=== PATIENT | female | born 1945 | race Caucasian/White ===

== ENCOUNTER 2017-04-27 14:09 | Emergency (ER) | payer MEDICARE ==
[2017-04-27 14:17] VITALS: BP 143/65
[2017-04-27] MEDS ORDERED: Tetan/Diph/Pertus SYR(Tdap)* 0.5 ML SYR(BOOSTRIX) use SYR IM ONE (14:20)
--- NOTE | 2017-04-27 14:23 | UC ---
Laceration HPI - HPI Summary HPI Summary: complaint of small laceration on right arm while cleaning her garage today not UTD on tetanus - History Of Current Complaint Chief Complaint: UCLaceration Stated Complaint: ARM LAC Time Seen by Provider: 04/27/17 14:14 Hx Obtained From: Patient Laceration Location: Arm - Allergies/Home Medications Allergies/Adverse Reactions: Allergies Allergy/AdvReac Type Severity Reaction Status Date / Time No Known Allergies Allergy Verified 04/27/17 14:23 Home Medications: Home Medications NK [No Home Medications Reported] 04/27/17 [History Confirmed 04/27/17] PMH/Surg Hx/FS Hx/Imm Hx Previously Healthy: Yes Cardiovascular History: Hypertension - Surgical History Surgical History: Yes Surgery Procedure, Year, and Place: abd peritonitis,hyster,bilat feet - Family History Known Family History: Positive: Hypertension Negative: Cardiac Disease, Diabetes - Social History Occupation: Retired Lives: With Family Alcohol Use: Daily Substance Use Type: None Smoking Status (MU): Never Smoked Tobacco Review of Systems Constitutional: Negative Skin: Other - laceration on right arm Eyes: Negative ENT: Negative Respiratory: Negative Cardiovascular: Negative Gastrointestinal: Negative Genitourinary: Negative Motor: Negative Neurovascular: Negative Musculoskeletal: Negative Neurological: Negative Psychological: Negative All Other Systems Reviewed And Are Negative: Yes Physical Exam Triage Information Reviewed: Yes Appearance: No Pain Distress, Well-Nourished Vital Signs: Initial Vital Signs Temp 98 F 04/27/17 14:14 Pulse 66 04/27/17 14:14 Resp 16 04/27/17 14:14 BP 143/65 04/27/17 14:14 Pulse Ox 100 04/27/17 14:14 Vital Signs Reviewed: Yes Eyes: Positive: Conjunctiva Clear Respiratory: Positive: Chest non-tender, Lungs clear, Normal breath sounds, No respiratory distress Cardiovascular: Positive: RRR, No Murmur, Pulses Normal, Brisk Capillary Refill Neurological: Positive: Alert Psychological Exam: Normal Skin: Positive: Other - RUE -1.5 cm laceration Laceration Repair - Laceration Repair 1 Description: Linear Laceration Size After Repair: Length (cm) - 1.5cm, Width (mm) - 1, Depth (mm) - 1 Cleansing Completed Via Routine Prep: Yes Irrigation With Pressure Irrigation Device: Yes Closure Material: SteriStrips Laceration Course/Dx - Differential Dx - Laceration/Wound Differental Diagnoses: Laceration Provider Diagnoses: simple laceration - right arm, elevated blood pressure Discharge - Discharge Plan Condition: Stable Disposition: HOME Patient Education Materials: Steristrips (ED) Referrals: [facility] [Outside] Additional Instructions: leave the steristrips in place until they fall off keep your wound clean and dry seek medical care if you have any signs of infection which includes increased redness, swelling, pain drainage or fever Take acetaminophen or ibuprofen for fever or pain Please review your discharge instructions. If your symptoms do not improve please call your primary care provider or return to urgent care.
== END 2017-04-27 14:39 | disposition home or self-care (01) ==
LOC: UCEAST 14:09
DX: S61.411A Laceration without foreign body of right hand, initial encounter (principal); I10 Essential (primary) hypertension; W45.8XXA Other foreign body or object entering through skin, initial encounter; Y93.H9 Activity, other involving exterior property and land maintenance, building and construction
CPT/HCPCS: 90471; 90715; 99213; G0463

== ENCOUNTER 2017-06-01 08:53 | Emergency (ER) | payer MEDICARE ==
[2017-06-01] MEDS ORDERED: Albuterol 2.5 MG/3 ML NEB.SOL* (0.083%) INH ONE (09:38)
--- NOTE | 2017-06-01 09:45 | UC ---
HPI Febrile Illness - HPI Summary HPI Summary: YESTERDAY DEVELOPED FEVER, AND SENSATION OF SHORTNESS OF BREATH - OKAY WITH INSPIRATION BUT FELT SHE COULD NOT EXHALE COMPLETELY. HAS DIFFUSE ACHINESS AND FATIGUE. NO COUGH OR CONGESTION. DENIES TICKE BITES. [place] - History of Current Complaint Chief Complaint: UCGeneralIllness Time Seen by Provider: 06/01/17 09:27 Hx Obtained From: Patient Onset/Duration: Started Hours Ago, Still Present Timing: Constant Initial Severity: Moderate Current Severity: Moderate Pain Intensity: 7 Pain Scale Used: 0-10 Numeric Aggravating Factors: Nothing Alleviating Factors: Nothing Associated Signs and Symptoms: Chills, Myalgia, SOB - Allergy/Home Medications Allergies/Adverse Reactions: Allergies Allergy/AdvReac Type Severity Reaction Status Date / Time Erythromycin Allergy See Comment Verified 06/01/17 09:18 Vicodin Allergy Vomiting Uncoded 06/01/17 09:21 Home Medications: Home Medications Aspirin [Aspirin 81 MG TAB] 1 tab PO DAILY 06/01/17 [History Confirmed 06/01/17] Atenolol & Chlorthalidone [Atenolol/Chlorthalidone 100-25 mg-] 1 tab PO DAILY [History Confirmed 06/01/17] Buffered Aspirin TAB* [Bufferin TAB*] 2 tab PO DAILY 06/01/17 [History Confirmed 06/01/17] Lisinopril [Lisinopril 40 MG-] 1 tab PO DAILY 06/01/17 [History Confirmed ] Magnesium Oxide [Magnesium] 1 tab PO DAILY 06/01/17 [History Confirmed 06/01/17] Vegan Vitamin 0.5 tab PO DAILY 06/01/17 [History Confirmed 06/01/17] PMH/Surg Hx/FS Hx/Imm Hx Endocrine/Hematology History: Denies: Hx Diabetes, Hx Thyroid Disease Cardiovascular History: Reports: Hx Hypertension - medication Respiratory History: Denies: Hx Asthma, Hx Chronic Obstructive Pulmonary Disease (COPD) GI History: Denies: Hx Ulcer - Surgical History Surgery Procedure, Year, and Place: abd peritonitis,hyster, bilateral foot surgeries Infectious Disease History: No Infectious Disease History: Denies: Hx Clostridium Difficile, Hx Hepatitis, Hx Human Immunodeficiency Virus (HIV), Hx of Known/Suspected MRSA, Hx Shingles, Hx Tuberculosis, Hx Known/ Suspected VRE, Hx Known/Suspected VRSA, History Other Infectious Disease, Traveled Outside the [place] in Last 30 Days - Family History Known Family History: Positive: Hypertension Negative: Cardiac Disease, Diabetes - Social History Alcohol Use: Daily Alcohol Amount: beer, 2 per night Substance Use Type: Reports: None Smoking Status (MU): Never Smoked Tobacco Review of Systems Constitutional: Fever, Fatigue Skin: Negative Respiratory: Shortness Of Breath Cardiovascular: Negative Gastrointestinal: Negative All Other Systems Reviewed And Are Negative: Yes Physical Exam Triage Information Reviewed: Yes Appearance: Well-Appearing, No Pain Distress, Well-Nourished Vital Signs: Initial Vital Signs Temp 101.5 F 06/01/17 09:11 Pulse 90 06/01/17 09:11 Resp 20 06/01/17 09:11 BP 169/97 06/01/17 09:11 Pulse Ox 96 06/01/17 09:11 Vital Signs Reviewed: Yes Eyes: Positive: Conjunctiva Clear ENT: Positive: Hearing grossly normal, Pharynx normal, TMs normal Neck: Positive: Supple, Nontender, No Lymphadenopathy Respiratory Exam: Normal Cardiovascular Exam: Normal Abdomen Description: Positive: Soft Musculoskeletal: Positive: No Edema Neurological: Positive: Alert Psychological: Positive: Age Appropriate Behavior Skin: Negative: rashes Diagnostics - Laboratory Diagnostic Studies Completed/Ordered: RAPID FLU NEGATIVE - EKG Cardiac Rate: NL - 83 bpm Cardiac Rhythm: Sinus: Normal Ectopy: None ST Segment: Non-Specific - <1MM ST DEPRESSION ANTEROLATERAL LEADS Re-Evaluation - Re-Evaluation First Eval Re-Evaluation Time: 10:30 - feels better after albuterol neb Change: Improved Course/Dx - Course Course Of Treatment: FELT BETTER AFTER NEB. EKG WITH NON SPECIFIC ST SEGMENT CHANGES. FLU NEG. PT DECLINES ALBUTEROL FOR HOME USE (BOTH NEB AND INHALER). DECLINES CXR AND LYME TESTING. DOES NOT WANT EMPIRIC ANTIBIOTICS. WILL TREAT WITH OTC MEDS AND REST. ADVISED TO F/U WITH PCP IN 2 DAYS IF NOT IMPROVED. TO ER WITHOUT FAIL IF SOB WORSENS, CP, NAUSEA, RPFC4CL, DIZZINESS. - Diagnoses Clinic Provider Diagnoses: ACUTE VIRAL ILLNESS Discharge - Discharge Plan Condition: Stable Disposition: HOME Patient Education Materials: Viral Syndrome (ED) Referrals: Mary Maki MD [Primary Care Provider] - 2 Days Additional Instructions: RAPID FLU TEST NEGATIVE. EKG NON SPECIFIC. SEEK FOLLOW-UP IF YOU ARE NOT FEELING BETTER IN 2 DAYS. GO TO ER WITHOUT FAIL IF YOU DEVELOP WORSENING SHORTNESS OF BREATH, CHEST PAIN, NAUSEA, SWEATS, DIZZINESS OR ANY OTHER CONCERNING SYMPTOMS.
[2017-06-01 10:56] VITALS: BP 158/86
== END 2017-06-01 10:50 | disposition home or self-care (01) ==
LOC: UCEAST 08:53
DX: B34.9 Viral infection, unspecified (principal); Z88.1 Allergy status to other antibiotic agents; Z88.5 Allergy status to narcotic agent; I10 Essential (primary) hypertension; Z79.82 Long term (current) use of aspirin
CPT/HCPCS: 87502; 93005; 99212; G0463

== ENCOUNTER 2017-06-01 14:32 | Emergency (ER) | payer MEDICARE ==
[2017-06-01 14:43] VITALS: BP 154/85
--- NOTE | 2017-06-01 14:49 | UC ---
Complaint Female HPI - HPI Summary HPI Summary: 72 YEAR OLD FEMALE PRESENTS WITH COMPLAINS OF FREQUENCY AND URGENCY OF URINATION. - History Of Current Complaint Chief Complaint: UCGU Stated Complaint: BURNING URINATION Time Seen by Provider: 06/01/17 14:48 Onset/Duration: Sudden Onset Timing: Constant Severity Initially: Moderate Severity Currently: Moderate Pain Scale Used: 0-10 Numeric - 5 Character: Sharp, Burning, Cramping Alleviating Factor(s): Nothing Associated Signs And Symptoms: Positive: Negative - Allergies/Home Medications Allergies/Adverse Reactions: Allergies Allergy/AdvReac Type Severity Reaction Status Date / Time Erythromycin Allergy See Comment Verified 06/01/17 09:18 Vicodin Allergy Vomiting Uncoded 06/01/17 09:21 PMH/Surg Hx/FS Hx/Imm Hx Previously Healthy: Yes - Surgical History Surgical History: Yes Surgery Procedure, Year, and Place: abd peritonitis,hyster, bilateral foot surgeries - Family History Known Family History: Positive: Hypertension Negative: Cardiac Disease, Diabetes - Social History Alcohol Use: Daily Alcohol Amount: beer, 2 per night Substance Use Type: None Smoking Status (MU): Never Smoked Tobacco - Immunization History Most Recent Tetanus Shot: 04/27/17 Review of Systems Constitutional: Negative Skin: Negative Eyes: Negative ENT: Negative Respiratory: Negative Cardiovascular: Negative Gastrointestinal: Negative Genitourinary: Dysuria, Frequency, Urgency Motor: Negative Neurovascular: Negative Musculoskeletal: Negative Neurological: Negative Psychological: Negative All Other Systems Reviewed And Are Negative: Yes Physical Exam Triage Information Reviewed: Yes Vital Signs: Initial Vital Signs Temp 37.1 C 06/01/17 14:39 Pulse 85 06/01/17 14:39 Resp 17 06/01/17 14:39 BP 154/85 06/01/17 14:39 Pulse Ox 99 06/01/17 14:39 Vital Signs Reviewed: Yes Eye Exam: Normal ENT Exam: Normal Dental Exam: Normal Neck exam: Normal Neck: Positive: 1 Respiratory Exam: Normal Cardiovascular Exam: Normal Abdominal Exam: Normal Musculoskeletal Exam: Normal Neurological Exam: Normal Psychological Exam: Normal Skin Exam: Normal Complaint Female Dx - Differential Dx/Diagnosis Provider Diagnoses: URINARY FREQUENCY. URINARY URGENCY Discharge - Discharge Plan Condition: Stable Disposition: HOME Prescriptions: Ciprofloxacin TAB* [Cipro 500 MG TAB*] 500 mg PO BID #14 tab Patient Education Materials: Dysuria (ED) Referrals: Mary Maki MD [Primary Care Provider] -
--- NOTE | 2017-06-02 17:20 | ED ---
Progress - Progress Note Progress Note: UCX (-). NO CHANGES. Course/Dx - Diagnoses Provider Diagnoses: Urinary tract infection
== END 2017-06-01 15:23 | disposition home or self-care (01) ==
LOC: UCEAST 14:32
DX: R35.0 Frequency of micturition (principal); R39.15 Urgency of urination; R30.0 Dysuria; Z88.1 Allergy status to other antibiotic agents; Z88.5 Allergy status to narcotic agent
CPT/HCPCS: 81003; 87086; 99212; G0463

== ENCOUNTER 2017-12-21 10:52 | Emergency (ER) | payer MEDICARE ==
[2017-12-21 11:07] VITALS: BP 130/70
--- NOTE | 2017-12-21 11:31 | ED ---
Throat Pain/Nasal Congestion - HPI Summary HPI Summary: Pt here w/ URI sx x 6 days. Cough, aches, chills, congestion and LYNN from coughing. Aches are better today. Has tried Coricidon HBP and delsym - these seem to help cough some but just wanted to get checked out as she's tired of being sick- cough at night. Denies fever, ST, PND, N/V/D, ab pain, rash. No known sick contacts. Imms are UTD. - History of Current Complaint Chief Complaint: UCRespiratory Time Seen by Provider: 12/21/17 11:17 Hx Obtained From: Patient - Allergies/Home Medications Allergies/Adverse Reactions: Allergies Allergy/AdvReac Type Severity Reaction Status Date / Time erythromycin base Allergy See Comment Verified 12/21/17 11:08 Vicodin Allergy Vomiting Uncoded 12/21/17 11:08 PMH/Surg Hx/FS Hx/Imm Hx Previously Healthy: Yes Endocrine/Hematology History: Denies: Hx Diabetes, Hx Thyroid Disease Cardiovascular History: Reports: Hx Hypertension - medication Respiratory History: Denies: Hx Asthma, Hx Chronic Obstructive Pulmonary Disease (COPD) GI History: Denies: Hx Ulcer - Surgical History Surgery Procedure, Year, and Place: abd peritonitis,hyster, bilateral foot surgeries Infectious Disease History: No Infectious Disease History: Denies: Hx Clostridium Difficile, Hx Hepatitis, Hx Human Immunodeficiency Virus (HIV), Hx of Known/Suspected MRSA, Hx Shingles, Hx Tuberculosis, Hx Known/ Suspected VRE, Hx Known/Suspected VRSA, History Other Infectious Disease, Traveled Outside the [place] in Last 30 Days - Family History Known Family History: Positive: Hypertension Negative: Cardiac Disease, Diabetes - Social History Occupation: Retired Lives: With Family Alcohol Use: Daily Alcohol Amount: beer, 2 per night Hx Substance Use: No Substance Use Type: Reports: None Hx Tobacco Use: No Smoking Status (MU): Never Smoked Tobacco Review of Systems Positive: Chills Eyes: Negative Positive: Nasal Discharge Cardiovascular: Negative Positive: Cough. Negative: Shortness Of Breath Gastrointestinal: Negative Positive: no symptoms reported Positive: Arthralgia Skin: Negative Positive: Headache Psychological: Normal All Other Systems Reviewed And Are Negative: Yes Physical Exam Triage Information Reviewed: Yes Vital Signs On Initial Exam: Initial Vitals Temp Pulse Resp BP Pulse Ox 98.2 F 89 18 130/70 99 12/21/17 10:56 12/21/17 10:56 12/21/17 10:56 12/21/17 10:56 12/21/17 10:56 Vital Signs Reviewed: Yes Appearance: Positive: Well-Appearing, No Pain Distress, Well-Nourished Skin: Positive: Warm, Skin Color Reflects Adequate Perfusion, Dry - NO RASH Head/Face: Positive: Normal Head/Face Inspection Eyes: Positive: Normal, EOMI, Conjunctiva Clear ENT: Positive: Normal ENT inspection, Hearing grossly normal, Pharynx normal - Cobblestoning, Nasal congestion, TMs normal, Uvula midline. Negative: Tonsillar swelling, Tonsillar exudate, Sinus tenderness Neck: Positive: Supple, Nontender, No Lymphadenopathy Respiratory/Lung Sounds: Positive: Clear to Auscultation, Breath Sounds Present. Negative: Rales, Rhonchi, Wheezes Cardiovascular: Positive: Normal, RRR, S1, S2 Abdomen Description: Positive: Nontender, Soft Musculoskeletal: Positive: Normal, Strength/ROM Intact Neurological: Positive: Normal, Sensory/Motor Intact, Alert, Oriented to Person Place, Time, CN Intact II-III Psychiatric: Positive: Normal Diagnostics - Vital Signs Vital Signs Temp Pulse Resp BP Pulse Ox 12/21/17 10:56 98.2 F 89 18 130/70 99 - Laboratory Lab Statement: Any lab studies that have been ordered have been reviewed, and results considered in the medical decision making process. EENT Course/Dx - Diagnoses Provider Diagnoses: URI with cough and congestion Discharge - Sign-Out/Discharge Documenting (check all that apply): Discharge - Discharge Plan Condition: Stable Disposition: HOME Prescriptions: Albuterol HFA INHALER* [Ventolin HFA Inhaler*] 2 puff INH Q6H PRN #1 mdi PRN Reason: Wheezing Benzonatate CAP* [Tessalon 100 MG CAP*] 100 mg PO TID PRN #15 cap PRN Reason: Cough Patient Education Materials: Upper Respiratory Infection (ED) Referrals: Mary Maki MD [Primary Care Provider] - Additional Instructions: You appear to have a viral URI. This should resolve in 7-14 days. You may try any of the following for relief: Nasal wash (netti pot or saline spray) & salt water throat gargles 2 x day Drink you body weight in ounces of water every day Sleep 8+ hours per night Avoid Dairy and sugar Hot herbal/decaf tea with lemon & honey Chicken broth (preferably organic, free range chicken) Humidifier in house, but especially near bed at night Keep home temperature at 68F or less to reduce dryness Use cough drops/throat lozenges Try a facial steam with or without eucalyptus essential oil or Catarino's Vapor rub for congestion Avoid smoke, candles, perfumes, colognes, scented soaps/detergents , air fresheners and cleaning chemicals as these can cause airway irritation and trigger coughing Start Vitamin D3 5000iu and Vitamin C 1000mg every day x winter months Tessalon perles may be used to reduce your cough. You may also try albuterol inhaler if you develop wheezing, etc. Both have been sent to your pharmacy. *If your symptoms persist beyond 14 days or worsen, follow up with your PCP. If you develop a fever, shortness of breath, bloody cough, back pain, difficulty breathing or swallowing, go to the ED - Billing Disposition and Condition Condition: STABLE Disposition: HOME
== END 2017-12-21 11:54 | disposition home or self-care (01) ==
LOC: UCEAST 10:52
DX: J06.9 Acute upper respiratory infection, unspecified (principal); R05 Cough; R09.89 Other specified symptoms and signs involving the circulatory and respiratory systems; I10 Essential (primary) hypertension; Z88.1 Allergy status to other antibiotic agents; Z88.5 Allergy status to narcotic agent
CPT/HCPCS: 99212; G0463

== ENCOUNTER 2018-04-09 10:27 | Emergency (ER) | payer MEDICARE ==
[2018-04-09 10:51] VITALS: BP 137/84
[2018-04-09] MEDS ORDERED: cefTRIAXone VIAL(*) 1,000 MG VIAL IM ONE (10:53)
--- NOTE | 2018-04-09 10:53 | UC ---
Bite Injury/Animal HPI - HPI Summary HPI Summary: This is cary Correia documenting for attending Dr. Nikita Colvin MD. The patient is a 73 y/o F presenting to [facility] c/o bites and scratches from a feral cat that is not hers at 0945 this morning. She has been feeding the cat for a few and has been worried about the care of the cat so she called the [employer] who came and captured the cat, but the pt received bites on her right hand and scratches on her bilateral hands and right forearm. There is some erythema and swelling to the lacerations. The [facility] has already been notified. She is allergic to Erythromycin and Vicodin. - History of Current Complaint Stated Complaint: CAT BITE Time Seen by Provider: 04/09/18 10:41 Hx Obtained From: Patient Severity Currently: Mild Severity Initially: Mild Pain Scale Used: 0-10 Numeric Onset/Duration: Sudden Onset, Lasting Minutes, Still Present Type of Bite: Pet Has Animal Been Immunized?: Unknown Character: Puncture, Abrasion/Laceration Aggravating Factor(s): Nothing Alleviating Factor(s): Nothing Associated Signs And Symptoms: Negative: Fever Animal Available for Observation: Yes Animal Control Notified: Yes Body - Head: 1 - laceration on right forearm 2 - puncture ramirez to right second finger 3 - V-shaped laceration - Allergies/Home Medications Allergies/Adverse Reactions: Allergies Allergy/AdvReac Type Severity Reaction Status Date / Time erythromycin base Allergy See Comment Verified 04/09/18 10:42 Vicodin Allergy Vomiting Uncoded 04/09/18 10:42 PMH/Surg Hx/FS Hx/Imm Hx Other Endocrine History: NEGATIVE: diabates Cardiovascular History: Hypertension - Surgical History Surgical History: Yes Surgery Procedure, Year, and Place: abd peritonitis,hyster, bilateral foot surgeries - Family History Known Family History: Positive: Hypertension Negative: Cardiac Disease, Diabetes - Social History Alcohol Use: Daily Alcohol Amount: beer, 2 per night Substance Use Type: None Smoking Status (MU): Never Smoked Tobacco - Immunization History Most Recent Tetanus Shot: 04/27/17 Review of Systems Constitutional: Negative - fever Skin: Other - cat scratches and bites on bilateral hands and right forearm with erythema and swelling All Other Systems Reviewed And Are Negative: Yes Physical Exam - Summary Physical Exam Summary: Appearance: Well-appearing, Well-nourished Skin: Warm, V-shaped laceration over the proximal metacarpal and dorsum of left hand, few puncture ramirez on the right second base of the metacarpal with surrounding swelling, erythema, and tenderness, diffuse scratch ramirez on the right wrist and flexor part of the forearm Eyes: Normal ENT: Normal Neck: Supple, nontender Respiratory: Clear to auscultation Cardiovascular: Regular rate, regular rhythm. Normal S1, S2. Radial pulse 2+ bilaterally. Abdomen: Soft, nontender Musculoskeletal: Normal, Strength/ROM Intact Neurological: Normal, A&Ox3 Psychiatric: Normal General: No acute distress Triage Information Reviewed: Yes Vital Signs Reviewed: Yes Procedures - Laceration/Wound Repair 1 Location: upper extremity - left proximal hand Length, Depth and Shape: V-shaped Closure: Single Layer Suture Type: Prolene - 40. Number of Sutures: 3 Re-Evaluation - Re-Evaluation First Eval Re-Evaluation Time: 11:20 Change: Improved Comment: I sutured the pt's lacerations. She will be discharged home. Pt is agreeable with this plan. Bite Injury Course/Dx - Course Course Of Treatment: Diffuse puncture ramirez and V shaped laceration on Left dorsum of hand, IM Rocephin and PO flagyl x 1 given in UC, PO Augmentin ordered for outpt abx - Differential Dx/Diagnosis Provider Diagnoses: cat bite, cat scratch Discharge - Sign-Out/Discharge Documenting (check all that apply): Patient Departure - Pt will be discharged home. - Discharge Plan Condition: Stable Disposition: HOME Prescriptions: Amoxicillin/Clavulanate TAB* [Augmentin TAB 500 mg*] 500 mg PO BID 10 Days #20 tab Patient Education Materials: Animal Bite (ED) Referrals: Mary Maki MD [Primary Care Provider] - Additional Instructions: Follow up at clinic for wound re-check in 2 days. Return to the emergency department for any or worsening symptoms. - Billing Disposition and Condition Condition: STABLE Disposition: Home
[2018-04-09] MEDS ORDERED: metroNIDAZOLE TAB* 250 MG PO ONE (10:54)
[2018-04-09] MEDS ORDERED: Bupivacaine 0.25% SDV* 30 ML INJ ONE (11:03)
[2018-04-09] MEDS ORDERED: Lidocaine 1% MPF* 2 ML VIAL INJ ONE (11:08)
[2018-04-09] MEDS ORDERED: Bupivacaine 0.25% SDV PF* 10 ML VIAL INJ ONE (11:15)
[2018-04-09] MEDS ORDERED: Lidocaine 1%* 5 ML VIAL ONE (11:16)
== END 2018-04-09 12:18 | disposition home or self-care (01) ==
LOC: UCEAST 10:27
DX: S61.451A Open bite of right hand, initial encounter (principal); S50.811A Abrasion of right forearm, initial encounter; W55.01XA Bitten by cat, initial encounter; Y93.9 Activity, unspecified; Y92.009 Unspecified place in unspecified non-institutional (private) residence as the place of occurrence of the external cause
CPT/HCPCS: 12001; 96372; 99213; A9270-GY; G0463; J0696; J3490

== ENCOUNTER 2018-04-10 10:27 | Emergency (ER) | payer MEDICARE ==
--- NOTE | 2018-04-10 10:36 | UC ---
Hand/Wrist HPI - HPI Summary HPI Summary: 73 yo female presents for wound recheck. She tells me that yesterday was capturing a stray cat to take to the [facility] and the cat bit her right hand and scratched her left hand. Pt was able to bring the cat to the [facility] and was seen here yesterday for these injuries. She was given ceftriaxone and flagyl in the clinic with augmentin rx. She is here this morning because there is more redness and swelling. Denies fever or chills. - History Of Current Complaint Stated Complaint: HAND COMPLAINT Time Seen by Provider: 04/10/18 10:35 Hx Obtained From: Patient Onset/Duration: Sudden Onset Severity Currently: None - Allergies/Home Medications Allergies/Adverse Reactions: Allergies Allergy/AdvReac Type Severity Reaction Status Date / Time erythromycin base Allergy See Comment Verified 04/10/18 10:32 Vicodin AdvReac Vomiting Uncoded 04/10/18 10:32 PMH/Surg Hx/FS Hx/Imm Hx Cardiovascular History: Hypertension - Surgical History Surgical History: Yes Surgery Procedure, Year, and Place: abd peritonitis,hyster, bilateral foot surgeries - Family History Known Family History: Positive: Hypertension Negative: Cardiac Disease, Diabetes - Social History Occupation: Retired Lives: With Family Alcohol Use: Daily Alcohol Amount: beer, 2 per night Substance Use Type: None Smoking Status (MU): Never Smoked Tobacco - Immunization History Most Recent Tetanus Shot: 04/27/17 Review of Systems Constitutional: Negative Skin: Other - Cat scratches left hand. Cat bite right hand Respiratory: Negative Cardiovascular: Negative Neurovascular: Negative Neurological: Negative Psychological: Negative All Other Systems Reviewed And Are Negative: Yes Physical Exam - Summary Physical Exam Summary: GENERAL: NAD. WDWN. No pain distress. SKIN: LEFT HAND: Two sutures in place on dorsal surface with mild surrounding erythema and edema extending to the MCPs. NTTP. No warmth. RIGHT HAND: few puncture ramirez on dorsal surface with mild erythema and edema. NTTP. No warmth. NECK: Supple. Nontender. No lymphadenopathy. CHEST: No accessory muscle use. Breathing comfortably and in no distress. CV: Pulses intact radial and ulnar. MSK: B/L FROM wrist and all fingers. Strength 5/5 including whistle punk strength. NEURO: Alert. Sensations intact hand and all fingers. PSYCH: Age appropriate behavior. Triage Information Reviewed: Yes Vital Signs: Vital Signs: Temp Pulse Resp BP Pulse Ox 97.9 F 86 16 158/93 100 04/10/18 10:33 04/10/18 10:33 04/10/18 10:33 04/10/18 10:33 04/10/18 10:33 Vital Signs Reviewed: Yes Hand/Wrist Course/Dx - Course Course Of Treatment: Pt has one dose of Augmentin last night and one shortly before arriving today. She is currently afebrile, no streaking to her wounds, no tenderness, and no warmth. I advised pt to continue the Augmentin and to ice the area. Return in 2 days for a recheck or tomorrow if worse. - Differential Dx/Diagnosis Provider Diagnoses: Cat bite right hand. Cat scratch left hand Discharge - Sign-Out/Discharge Documenting (check all that apply): Patient Departure - Discharge Plan Condition: Stable Disposition: HOME Patient Education Materials: Animal Bite (ED), Cellulitis (DC) Referrals: Mary Maki MD [Primary Care Provider] - Additional Instructions: If you develop a fever, shortness of breath, chest pain, new or worsening symptoms - please call your PCP or go to the ED. Your blood pressure was high at todays visit. Please see your primary provider within 4 weeks for recheck and re-evaluation. 1) If your redness and swelling increase tomorrow - please come back for recheck....if it seems improved tomorrow, please be seen in 2 days (tuesday) for recheck. - Billing Disposition and Condition Condition: STABLE Disposition: Home
[2018-04-10 10:40] VITALS: BP 158/93
== END 2018-04-10 11:00 | disposition home or self-care (01) ==
LOC: UCEAST 10:27
DX: S61.451A Open bite of right hand, initial encounter (principal); S60.512A Abrasion of left hand, initial encounter; I10 Essential (primary) hypertension; Z88.5 Allergy status to narcotic agent; Z88.1 Allergy status to other antibiotic agents; W55.01XA Bitten by cat, initial encounter; W55.03XA Scratched by cat, initial encounter; Y92.9 Unspecified place or not applicable
CPT/HCPCS: 99212; G0463

== ENCOUNTER 2018-04-12 07:30 | Emergency (ER) | payer MEDICARE ==
[2018-04-12 07:46] VITALS: BP 150/100
--- NOTE | 2018-04-12 08:41 | UC ---
HPI Wound/Suture Re-check - HPI Summary HPI Summary: 4 DAYS AGO PATIENT WAS CARING FOR A FERAL CAT WHEN THE CAT SCRATCHED HER AND BIT HER ON HER HANDS. WAS SEEN AND HAD SUTURES PLACED AND WAS GIVEN ANTIBIOTICS. IS HERE TODAY FOR WOUND RECHECK PER RECOMMENDATION. WOUNDS ARE HEALING WELL. NO FEVER. SHE DOES REPORT SOME DIARRHEA THAT IS LIKELY ASSOCIATED WITH HER ANTIBIOTICS BUT PATIENT SAYS IT IS TOLERABLE. - History Of Current Complaint Chief Complaint: UCWounds Stated Complaint: WOUND RECHECK Time Seen by Provider: 04/12/18 08:12 Hx Obtained From: Patient Onset/Duration: Sudden Onset, Lasting Days, Still Present Severity: Mild Pain Intensity: 0 Pain Scale Used: 0-10 Numeric - Allergies/Home Medications Allergies/Adverse Reactions: Allergies Allergy/AdvReac Type Severity Reaction Status Date / Time erythromycin base Allergy See Comment Verified 04/12/18 07:42 guinea pigs Allergy Difficulty Uncoded 04/12/18 07:42 Breathing/Wheezing Vicodin AdvReac Vomiting Uncoded 04/12/18 07:42 PMH/Surg Hx/FS Hx/Imm Hx Cardiovascular History: Hypertension - Surgical History Surgical History: Yes Surgery Procedure, Year, and Place: abd peritonitis,hyster, bilateral foot surgeries - Family History Known Family History: Positive: Hypertension Negative: Cardiac Disease, Diabetes - Social History Alcohol Use: Daily Alcohol Amount: beer, 2 per night Substance Use Type: None Smoking Status (MU): Never Smoked Tobacco - Immunization History Most Recent Tetanus Shot: 04/27/17 Review of Systems Constitutional: Negative Skin: Other - HEALING ABRASIONS/LACERATION ON HANDS Respiratory: Negative Cardiovascular: Negative Gastrointestinal: Negative Musculoskeletal: Negative All Other Systems Reviewed And Are Negative: Yes Physical Exam Triage Information Reviewed: Yes Appearance: Well-Appearing, No Pain Distress, Well-Nourished Vital Signs: Initial Vital Signs Temp 97.2 F 04/12/18 07:37 Pulse 91 04/12/18 07:37 Resp 18 04/12/18 07:37 BP 150/100 04/12/18 07:37 Pulse Ox 98 04/12/18 07:37 Vital Signs Reviewed: Yes Eyes: Positive: Conjunctiva Clear ENT: Positive: Hearing grossly normal Neck: Positive: Supple Respiratory: Positive: No respiratory distress, No accessory muscle use Cardiovascular: Positive: Pulses Normal Abdomen Description: Positive: Soft Musculoskeletal: Positive: ROM Intact, No Edema Neurological: Positive: Alert Psychological: Positive: Age Appropriate Behavior Skin: Positive: Other - HEALING SCRATCHES RIGHT HAND. HEALING LACERATION BACK OF LEFT HAND WITH SUTURES IN PLACE. NO DRAINAGE. NO SURROUNDNG ERYTHEMA Course/Dx - Differential Dx - Laceration/Wound Provider Diagnoses: HEALING WOUNDS BILATERAL HANDS Discharge - Sign-Out/Discharge Documenting (check all that apply): Patient Departure - Discharge Plan Condition: Stable Disposition: HOME Referrals: Mary Maki MD [Primary Care Provider] - If Needed Additional Instructions: YOUR WOUNDS LOOK GOOD AND ARE HEALING WELL. CHANGE BANDAGE DAILY AND NEEDED IF IT BECOMES SOILED OR WET. SEEK FOLLOW-UP IF YOU DEVELOP SPREADING REDNESS OF THE SKIN, PURULENT DRAINAGE, FEVER, INCREASED PAIN OR ANY OTHER CONCERNING SYMPTOMS. RETURN FOR SUTURE REMOVAL IN ABOUT A WEEK. - Billing Disposition and Condition Condition: STABLE Disposition: Home
== END 2018-04-12 08:43 | disposition home or self-care (01) ==
LOC: UCEAST 07:30
DX: S61.411A Laceration without foreign body of right hand, initial encounter (principal); R19.7 Diarrhea, unspecified; S61.412A Laceration without foreign body of left hand, initial encounter; I10 Essential (primary) hypertension; Z88.1 Allergy status to other antibiotic agents; Z91.048 Other nonmedicinal substance allergy status; Z88.5 Allergy status to narcotic agent; W55.03XA Scratched by cat, initial encounter; Y92.9 Unspecified place or not applicable
CPT/HCPCS: 99212; G0463

== ENCOUNTER 2018-04-19 07:44 | Emergency (ER) | payer MEDICARE ==
[2018-04-19 07:54] VITALS: BP 135/75
[2018-04-19] MEDS ORDERED: Benzoin Compound STICK TOPICAL ONE (08:00)
--- NOTE | 2018-04-19 08:15 | UC ---
HPI Wound/Suture Re-check - HPI Summary HPI Summary: The patient is a 73-year-old female that presents here for removal of sutures from the dorsum of her left hand. The flap laceration occurred from a cat scratch. She was taking Augmentin. She denies any concerns. She has no pain. One suture inadvertently pulled out. This may have occurred when she put her hand in a pocket. - History Of Current Complaint Chief Complaint: UCWounds Stated Complaint: SUTURE REMOVAL Time Seen by Provider: 04/19/18 08:10 Hx Obtained From: Patient Onset/Duration: Gradual Onset Severity: Mild Pain Intensity: 0 Pain Scale Used: 0-10 Numeric - Allergies/Home Medications Allergies/Adverse Reactions: Allergies Allergy/AdvReac Type Severity Reaction Status Date / Time erythromycin base Allergy See Comment Verified 04/19/18 07:53 guinea pigs Allergy Difficulty Uncoded 04/19/18 07:53 Breathing/Wheezing Vicodin AdvReac Vomiting Uncoded 04/19/18 07:53 Home Medications: Home Medications Cyanocobalamin (Vitamin B-12) [Vitamin B-12] 1,000 mcg PO DAILY 04/19/18 [ History Confirmed 04/19/18] PMH/Surg Hx/FS Hx/Imm Hx Previously Healthy: Yes - Surgical History Surgical History: Yes Surgery Procedure, Year, and Place: abd peritonitis,hyster, bilateral foot surgeries - Family History Known Family History: Positive: Hypertension Negative: Cardiac Disease, Diabetes - Social History Alcohol Use: Daily Alcohol Amount: beer, 2 per night Substance Use Type: None Smoking Status (MU): Never Smoked Tobacco - Immunization History Most Recent Tetanus Shot: 04/27/17 Review of Systems Constitutional: Negative Skin: Negative Eyes: Negative ENT: Negative Respiratory: Negative Cardiovascular: Negative Gastrointestinal: Negative Genitourinary: Negative Motor: Negative Neurovascular: Negative Musculoskeletal: Negative Neurological: Negative Psychological: Negative Is Patient Immunocompromised?: No All Other Systems Reviewed And Are Negative: Yes Physical Exam Triage Information Reviewed: Yes Appearance: Well-Appearing, No Pain Distress, Well-Nourished Vital Signs: Initial Vital Signs Temp 96.6 F 04/19/18 07:50 Pulse 78 04/19/18 07:50 Resp 18 04/19/18 07:50 BP 135/75 04/19/18 07:50 Pulse Ox 97 04/19/18 07:50 Eyes: Positive: Conjunctiva Clear ENT: Positive: Hearing grossly normal. Negative: Nasal congestion, Nasal drainage, Trismus, Muffled voice, Hoarse voice Neck: Positive: Supple, Nontender Respiratory: Positive: Lungs clear, Normal breath sounds, No respiratory distress, No accessory muscle use Cardiovascular: Positive: RRR, No Murmur Musculoskeletal: Positive: ROM Intact, No Edema Neurological: Positive: Alert Psychological Exam: Normal Skin Exam: Other - healing lac Course/Dx - Course Course Of Treatment: no redness. 2 sutures removed. steri strips applied - Differential Dx - Laceration/Wound Provider Diagnoses: suture removal Discharge - Sign-Out/Discharge Documenting (check all that apply): Patient Departure - Discharge Plan Condition: Stable Disposition: HOME Referrals: Mary Maki MD [Primary Care Provider] - If Needed Additional Instructions: sutures removed steristrips applied recheck for any concerns call for any questions - Billing Disposition and Condition Condition: STABLE Disposition: Home
== END 2018-04-19 08:13 | disposition home or self-care (01) ==
LOC: UCEAST 07:44
DX: S61.412D Laceration without foreign body of left hand, subsequent encounter (principal); W55.03XD Scratched by cat, subsequent encounter; Z88.1 Allergy status to other antibiotic agents; Z88.5 Allergy status to narcotic agent
CPT/HCPCS: 99211; G0463

== ENCOUNTER 2019-11-07 10:33 | Emergency (ER) | payer MEDICARE ==
[2019-11-07 10:53] VITALS: BP 135/84
--- NOTE | 2019-11-07 11:05 | UC ---
Abdominal Pain Female HPI - HPI Summary HPI Summary: nausea / vomiting x 6 days worse with movements , better with rest, abdominal cramps , diarrhea the fist few days no chest pain, no palpitation, has been feeling very weak seating - History of Current Complaint Chief Complaint: UCRespiratory Stated Complaint: FEVER NAUSEA Time Seen by Provider: 11/07/19 10:45 Hx Obtained From: Patient Onset/Duration: Gradual Onset, Lasting Days - 6, Still Present Timing: Constant Severity Initially: Moderate Severity Currently: Moderate Pain Intensity: 0 Location: Diffuse Radiates: No Character: Cramping Aggravating Factor(s): Food, Movement Alleviating Factor(s): Nothing Associated Signs and Symptoms: Positive: Decreased Appetite, Nausea, Vomiting, Diarrhea. Negative: Fever, Cough, Chest Pain, Dizzy, Back Pain, Constipation, Blood in Stool, Urinary Symptoms, Vaginal Bleeding, Vaginal Discharge Allergies/Adverse Reactions: Allergies Allergy/AdvReac Type Severity Reaction Status Date / Time erythromycin base Allergy See Comment Verified 11/07/19 10:45 guinea pigs Allergy Difficulty Uncoded 11/07/19 10:45 Breathing/Wheezing Vicodin AdvReac Vomiting Uncoded 11/07/19 10:45 Home Medications: Home Medications Aspirin EC TAB* [Ecotrin EC Low Dose 81 MG*] 81 mg PO DAILY 11/07/19 [History Confirmed 11/07/19] Lisinopril TAB* [Prinivil TAB*] 40 mg PO QAM 11/07/19 [History Confirmed ] PMH/Surg Hx/FS Hx/Imm Hx Cardiovascular History: Hypertension - Surgical History Surgical History: Yes Surgery Procedure, Year, and Place: abd peritonitis, hysterectomy , bilateral foot surgeries - Family History Known Family History: Positive: Hypertension Negative: Cardiac Disease, Diabetes - Social History Alcohol Use: Daily Alcohol Amount: beer, 1-2 per night Substance Use Type: None Smoking Status (MU): Never Smoked Tobacco - Immunization History Most Recent Tetanus Shot: 04/27/17 Review of Systems All Other Systems Reviewed And Are Negative: Yes Is Patient Immunocompromised?: No Physical Exam Triage Information Reviewed: Yes Appearance: Well-Nourished, Ill-Appearing, Pain Distress Vital Signs: Initial Vital Signs Temp 97.7 F 11/07/19 10:47 Pulse 66 11/07/19 10:47 Resp 16 11/07/19 10:47 BP 135/84 11/07/19 10:47 Pulse Ox 100 11/07/19 10:47 Vital Signs Reviewed: Yes Eyes: Positive: Conjunctiva Clear ENT: Positive: Normal ENT inspection, Hearing grossly normal, Pharynx normal Neck: Positive: Supple, Nontender, No Lymphadenopathy Respiratory: Positive: Chest non-tender, Lungs clear, Normal breath sounds Cardiovascular: Positive: RRR, No Murmur, Pulses Normal Abdomen Description: Positive: Nontender, Soft. Negative: CVA Tenderness (R), CVA Tenderness (L), Distended, Guarding Bowel Sounds: Positive: Hyperactive Musculoskeletal Exam: Normal Abd Pain Female Course/Dx - Differential Dx/Diagnosis Provider Diagnosis: Gastroenteritis Discharge ED - Sign-Out/Discharge Documenting (check all that apply): Patient Departure All imaging exams completed and their final reports reviewed: No Studies - Discharge Plan Condition: Stable Disposition: HOME Prescriptions: Ondansetron ODT TAB* [Zofran 4 MG Odt TAB*] 8 mg PO Q8H PRN #9 tab.odt PRN Reason: Nausea/Vomiting Patient Education Materials: Acute Nausea and Vomiting (ED) Referrals: Mary Maki MD [Primary Care Provider] - 7 Days Additional Instructions: symptoms most likely due to a viral illness may take Zofran as needed for nausea and vomiting , increase fluid, to stay hydrated will check cbc and cmp to check kidney function and liver function follow up with your pcp in one week, sooner if getting worse - Billing Disposition and Condition Condition: STABLE Disposition: Home
[2019-11-07 14:23] LABS: Hematocrit 49 % (35-47); Hemoglobin 17.3 g/dL (12.0-16.0); Mean Corpuscular HGB Conc 35 g/dL (31-36); Mean Corpuscular Hemoglobin 33 pg (27-31); Mean Corpuscular Volume 93 fL (80-97); Mean Platelet Volume 10.3 fL (7.4-10.4); Platelet Count 213 10^3/uL (150-450); Red Blood Count 5.29 10^6 /uL (3.70-4.87); Red Cell Distribution Width 12 % (10-15); White Blood Count 5.1 10^3/uL (3.5-10.8)
[2019-11-07 14:27] LABS: Albumin 4.1 g/dL (3.2-5.2); Calcium 9.3 mg/dL (8.6-10.3); Potassium 3.3 mmol/L (3.5-5.0); Total Bilirubin 0.7 mg/dL (0.2-1.0)
[2019-11-07 14:33] LABS: Albumin/Globulin Ratio 1.3 (1-3); BUN/Creatinine Ratio 21.7 (8-20); EGFR African American 118.9 (>60); EGFR Non-African American 98.3 (>60); Globulin 3.1 g/dL (2-4); Total Protein 7.2 g/dL (6.4-8.9)
[2019-11-07 15:09] LABS: ABS Basophils 0.1 10^3/ul (0-0.2); ABS Eosinophils 0.1 10^3/ul (0-0.6); ABS Lymphocytes 1.9 10^3/ul (1.0-4.8); ABS Monocytes 0.7 10^3/ul (0-0.8); ABS Neutrophils 2.4 10^3/ul (1.5-7.7); Lymphocyte % 36.9 %; Nucleated Red Blood Cells % 0.1
--- NOTE | 2019-11-08 09:37 | UC ---
- Results/Orders Results/Orders: reviewed blood work. Potassium is low. Advised increase potassium in diet. Sodium slightly low. If any confusion or continued vomiting/diarrhea then go to emergency room. Follow-up with primary care doctor as soon as possible. Liver function testing slightly elevated. Follow-up with primary care doctor to recheck in no later than 1 week. Course/Dx - Diagnoses Provider Diagnoses: Gastroenteritis Discharge ED - Sign-Out/Discharge Documenting (check all that apply): Patient Departure All imaging exams completed and their final reports reviewed: No Studies - Discharge Plan Condition: Stable Disposition: HOME Prescriptions: Ondansetron ODT TAB* [Zofran 4 MG Odt TAB*] 8 mg PO Q8H PRN #9 tab.odt PRN Reason: Nausea/Vomiting Patient Education Materials: Acute Nausea and Vomiting (ED) Referrals: Mary Maki MD [Primary Care Provider] - 7 Days Additional Instructions: symptoms most likely due to a viral illness may take Zofran as needed for nausea and vomiting , increase fluid, to stay hydrated will check cbc and cmp to check kidney function and liver function follow up with your pcp in one week, sooner if getting worse - Billing Disposition and Condition Condition: STABLE Disposition: Home
== END 2019-11-07 11:30 | disposition home or self-care (01) ==
LOC: UCCORT 10:33
DX: K52.9 Noninfective gastroenteritis and colitis, unspecified (principal); I10 Essential (primary) hypertension; Z88.1 Allergy status to other antibiotic agents; Z88.5 Allergy status to narcotic agent; Z91.09 Other allergy status, other than to drugs and biological substances; Z79.82 Long term (current) use of aspirin; Z79.899 Other long term (current) drug therapy
CPT/HCPCS: 36415; 80053; 85025; 99212; G0463